=== PATIENT | female | born 1950 | race Caucasian/White ===

== ENCOUNTER 2019-12-20 08:50 | Emergency (ER) | payer MEDICARE, SELFPAY ==
[2019-12-20 09:40] VITALS: BP 113/71; PULSE 70; RESP 18; TEMP 36.5; O2SAT 99
[2019-12-20 09:57] LABS: Add Urine Microscopic? YES; Appearance Urine Clear (Clear); Bilirubin Urine Negative (Negative); Blood Urine Negative (Negative); Color Urine Yellow (Yellow); Glucose Urine UA Negative (Negative); Ketones Urine Negative (Negative); Leukocyte Esterase Ur Trace LEU/UL (Negative); Mucus Urine Few /lpf; Nitrate Urine Negative (Negative); Protein Urine Negative (Negative); RBC Urine 0-2 /hpf (0-2); Specific Grav Ur 1.026 (1.001-1.035); Urobilinogen Urine Negative mg/dL (<2.0); WBC Urine 0-3 /hpf
[2019-12-20 10:23] LABS: Basophils Absolute Auto 0.1 K/mm3 (0.0-0.1); Basophils Percent Auto 1.3 % (0.2-1.2); Eosinophils Absolute Auto 0.2 K/mm3 (0-0.3); Eosinophils Percent Auto 2.8 % (0-4.4); Hematocrit 43.3 % (37.0-47.0); Immature Granulocyte Absolute 0.01 K/mm3 (0.00-0.031); Immature Granulocyte Percent A 0.2 % (0-0.5); Lymphocytes Absolute Auto 1.51 K/mm3 (0.9-3.2); Lymphocytes Percent Auto 28.5 % (18.3-44.2); Mean Corpuscular HGB Conc 32.3 g/dl (32-36); Mean Corpuscular Hemoglobin 29.7 pg (26-34); Mean Corpuscular Volume 91.7 fl (80-100); Mean Platelet Volume 9.3 fl (7.4-10.4); Monocytes Absolute Auto 0.6 K/mm3 (0.1-0.6); Monocytes Percent Auto 11.5 % (2.6-8.5); Neutrophils Percent Auto 55.7 % (45.5-73.1); Platelet Count Result 355 k/mm3 (150-375); Red Blood Count 4.72 M/mm3 (4.2-5.4); Red Cell Distribution Width 13.1 % (11.5-14.5); White Blood Count 5.3 K/mm3 (4.5-10.0)
[2019-12-20 10:35] LABS: Alanine Aminotransferase 17 U/L (4-35); Albumin Level 4.5 g/dL (3.5-5.1); Alkaline Phosphatase 81 U/L (38-126); Aspartate Amino Transferase 63 U/L (14-36); Bilirubin,Total 0.3 mg/dL (0.2-1.3); Blood Urea Nitrogen 16 mg/dL (7-17); Calcium 9.2 mg/dL (8.4-10.2); Carbon Dioxide 29 mmol/L (22-30); Chloride 102 mmol/L (98-107); Estimated CRCL calculation 63 ml/min; Estimated Glomerular Filt Rate > 60; Glucose 97 mg/dL (65-105); Lipase 145 U/L (23-300); Potassium 4.4 mmol/L (3.4-5.0); Sodium 137 mmol/L (137-145)
--- NOTE | 2019-12-20 10:57 | ED.GENADULT ---
HPI - General Adult General Chief complaint: Back Pain/Injury Stated complaint: LOWER BACK PAIN Time Seen by Provider: 12/20/19 10:10 Source: patient and family Mode of arrival: ambulatory Limitations: no limitations History of Present Illness HPI narrative: Patient is a 69-year-old female who presents to emergency department for evaluation of right lower back pain intermittently radiating down the right leg localized over the right SI joint patient denies injury or trauma or similar occurrence in the past. Patient on arrival is in the room in no distress noting that the pain improves with standing worsens with lying. Denies injury trauma has not been seen for this complaint did take a hydrocodone this morning with minimal improvement Related Data Home Medications Medication Instructions Recorded Confirmed escitalopram oxalate [Lexapro] 10 mg PO DAILY 12/20/19 Allergies Allergy/AdvReac Type Severity Reaction Status Date / Time No Known Allergies Allergy Verified 12/20/19 10:01 Review of Systems Review of Systems: All systems reviewed & are unremarkable except as noted in HPI and below PMFSH Past Medical History Medical History (Updated 12/20/19 @ 10:59 by Iker Carrera PA-C) Anxiety Surgical History Surgical History (Updated 12/20/19 @ 10:58 by Iker Carrera PA-C) History of orthopedic surgery Social History Social History (Updated 12/20/19 @ 10:58 by Iker Carrera PA-C) Smoking status: Current every day smoker Alcohol intake: never Gender identity (if verbalized by the patient): Female Exam Narrative: Exam Narrative: GENERAL: Well-appearing, well-nourished, and in no acute distress. HEAD: Normocephalic, atraumatic. EYES: PERRLA and EOMI. ENT: Nares clear, no rhinorrhea or epistaxis. Mucous membranes moist. EXTREMITIES: Normal range of motion. No edema. Tenderness over the right SI joint no midline or left-sided tenderness SKIN: Warm, dry, no rash. NEURO: No focal deficits. Alert and oriented x3. Normal speech and gait. Motor and sensory intact and symmetrical in the extremity PSYCH: Normal mood and affect. Course Course Emergency Course: Patient in the room aware of his findings treatment plan and diagnosis given medications advised to follow with primary care for further evaluation Vital Signs Vital signs: Vital Signs Temperature 97.7 F 12/20/19 09:40 Pulse Rate 70 07/01/20 09:40 Respiratory Rate 18 12/20/19 09:40 Blood Pressure 113/71 12/20/19 09:40 Pulse Oximetry 99 12/20/19 09:40 Temperature 97.7 F 12/20/19 09:40 Pulse Rate 70 12/20/19 09:40 Respiratory Rate 18 12/20/19 09:40 Blood Pressure 113/71 12/20/19 09:40 Pulse Oximetry 99 12/20/19 09:40 Medical Decision Making MDM Narrative Medical decision making narrative: Patients pain is positional in nature and localized to back without signs of cord compression or cauda equina based on neurological exam, skeletal exam and history. No fever or other significant factors to suggest osteomyelitis or spinal epidural abscess. No symptoms or signs to suggest pain is referred from abdominal or / cardiopulmonary sources. No pulsatile masses noted on exam. Patient ambulates with steady gait and is stable for outpatient management given case findings. Vital Signs Vital Signs: Vital Signs Temperature 97.7 F 12/20/19 09:40 Pulse Rate 70 12/20/19 09:40 Respiratory Rate 18 12/20/19 09:40 Blood Pressure 113/71 12/20/19 09:40 Pulse Oximetry 99 12/20/19 09:40 Temperature 97.7 F 12/20/19 09:40 Pulse Rate 70 12/20/19 09:40 Respiratory Rate 18 12/20/19 09:40 Blood Pressure 113/71 12/20/19 09:40 Pulse Oximetry 99 12/20/19 09:40 Lab Data Result diagrams: 12/20/19 10:14 12/20/19 10:14 Labs: Lab Results 12/20/19 12/20/19 12/20/19 Range/Units 09:48 10:14 10:14 WBC 5.3 (4.5-10.0) K/mm3 RBC 4.72 (4.2-5.4) M
[2019-12-20] MEDS: diazePAM 5 MG TABLET PO (11:07)
[2019-12-20] MEDS: KETOROLAC (*BKC) 60 MG/2 ML VIAL 30 MG IM (11:08)
== END 2019-12-20 11:20 | disposition home or self-care (01) ==
PROVIDERS: Emergency Provider Emergency Medicine
DX: M54.16 Radiculopathy, lumbar region (principal); F17.200 Nicotine dependence, unspecified, uncomplicated; F41.9 Anxiety disorder, unspecified
CPT/HCPCS: 36415; 80053; 81001; 83690; 85025; 96372; 99283; A9270; J1885